=== PATIENT | female | born 1985 | race Caucasian/White ===

== ENCOUNTER 2017-02-11 14:47 | Emergency (ER) | payer BC ==
[~2017-02-11] VITALS: Ht 160 cm; Wt 93.0 kg
[2017-02-11 15:08] VITALS: BP 121/56
[2017-02-11] MEDS ORDERED: IPRATRPIUM/ALBUTEROL 0.5/2.5MG 3 ML NEBU. NEB ONE (15:30)
[2017-02-11] MEDS ORDERED: predniSONE 20 MG TABLET PO ONE (15:30)
--- NOTE | 2017-02-11 15:34 | PHYS DOC ---
Past Medical History Past Medical History: Asthma, Depression Past Surgical History: Cholecystectomy, Tonsillectomy Alcohol Use: None Drug Use: None Adult General Chief Complaint Chief Complaint: COUGH HPI HPI Patient is a 31 year old female who presents with history of asthma who presents with wheezing and a cough for 1 week. Patient is 22 weeks . She states she has not used her breathing treatments because she did not know if she can use them in . Patient denies any fever. Denies any nasal congestion. She states she follows up with her OB for her . Review of Systems Review of Systems Constitutional: Denies fever or chills [] Eyes: Denies change in visual acuity, redness, or eye pain [] HENT: Denies nasal congestion or sore throat [] Respiratory: Reports cough and wheezing, denies shortness of breath [] Cardiovascular: No additional information not addressed in HPI [] GI: . Denies abdominal pain, nausea, vomiting, bloody stools or diarrhea [] : Denies dysuria or hematuria [] Musculoskeletal: Denies back pain or joint pain [] Integument: Denies rash or skin lesions [] Neurologic: Denies headache, focal weakness or sensory changes [] All other systems were reviewed and found to be within normal limits, except as documented in this note. Current Medications Current Medications Current Medications Medications (Trade) Dose Ordered Sig/Torsten Start Time Stop Time Status Last Admin Dose Admin Albuterol/ Ipratropium (Duoneb) 3 ml 1X ONCE 02/11/17 15:30 02/11/17 15:31 DC 02/11/17 15:43 3 ML Prednisone (Prednisone) 60 mg 1X ONCE 02/11/17 15:30 02/11/17 15:31 DC 02/11/17 15:39 60 MG Allergies Allergies Allergies Coded Allergies Type Severity Reaction Last Updated Verified No Known Drug Allergies 02/11/17 No Physical Exam Physical Exam Constitutional: Well developed, well nourished, no acute distress, non-toxic appearance. [] HENT: Normocephalic, atraumatic, bilateral external ears normal, oropharynx moist, no oral exudates, nose normal. [] Eyes: PERRLA, EOMI, conjunctiva normal, no discharge. [] Neck: Normal range of motion, no tenderness, supple, no stridor. [] Cardiovascular:Heart rate regular rhythm, no murmur [] Lungs & Thorax: Patient is actively coughing in the ED. Bilateral breath sounds clear to auscultation [] Abdomen: Bowel sounds normal, soft, no tenderness, no masses, no pulsatile masses. [] Skin: Warm, dry, no erythema, no rash. [] Back: No tenderness, no CVA tenderness. [] Extremities: No tenderness, no cyanosis, no clubbing, ROM intact, no edema. [] Neurologic: Alert and oriented X 3, normal motor function, normal sensory function, no focal deficits noted. [] Psychologic: Affect normal, judgement normal, mood normal. [] Current Patient Data Vital Signs Vital Signs Date Time Temp Pulse Resp B/P (MAP) Pulse Ox O2 Delivery O2 Flow Rate FiO2 02/11/17 15:46 Room Air 02/11/17 15:08 98.0 79 18 97 98.0 EKG EKG [] Radiology/Procedures Radiology/Procedures [] Course & Med Decision Making Course & Med Decision Making Pertinent Labs and Imaging studies reviewed. (See chart for details) Patient is in the ED with cough and wheezing for week. She has history of asthma. She is 22 weeks. heart tones in the 150s. Patient was coughing on arrival to the ED. She was given a DuoNeb treatment and started on prednisone. Her lungs have cleared up, her coughing has reduced. She was discharged with albuterol inhaler and prednisone for 4 more days. Encouraged her to follow-up with her OB as well as PCP in the next 7 days. She states everybody in the family has similar symptoms. Some of it is probably viral. Dragon Disclaimer Dragon Disclaimer This electronic medical record was generated, in whole or in part, using a voice recognition dictation system. Departure Departure Impression: Primary Impression: Asthma exacerbation Additional Impressions: Upper respiratory disease Disposition: 01 HOME, SELF-CARE Condition: STABLE Referrals: ALYSSA LY (PCP) follow up in the next seven days Patient Instructions: Asthma, Adult, [id number], Upper Respiratory Infection , Adult Additional Instructions: You were seen with a cough and wheezing some of the cough could be viral from an upper respiratory infection and some could be part of your asthma. Please take the prescribed medicines as ordered. Follow-up with your [employer] as well as the primary care doctor if you have one in the next 1-2 weeks. Scripts Prednisone (PREDNISONE) 50 Mg Tablet 1 TAB PO DAILY, #4 TAB Prov: ZACH SOLIMAN APRN 02/11/17 Albuterol Sulfate (Proair Respiclick) 90 Mcg Aer.pow.ba 1 PUFF IH PRN Q6HRS Y for SHORTNESS OF BREATH, #1 INHALER 1 Refill Prov: ZACH SOLIMAN APRN 02/11/17 Problem Qualifiers Primary Impression: Asthma exacerbation Asthma severity: mild Asthma persistence: intermittent Qualified Codes: J45.21 - Mild intermittent asthma with (acute) exacerbation Additional Impressions: Weeks of gestation: 22 weeks Qualified Codes: Z3A.22 - 22 weeks gestation of ZACH SOLIMAN APRN Feb 11, 2017 15:34
[2017-02-11] MEDS ORDERED: PRED50TA PO (16:13)
[2017-02-11] MEDS ORDERED: PROAIR RESPICL90 MCG IH (16:13)
== END 2017-02-11 16:18 | disposition home or self-care (01) ==
LOC: ER 14:47
DX: O99.512 Diseases of the respiratory system complicating pregnancy, second trimester (principal); J45.21 Mild intermittent asthma with (acute) exacerbation; J39.9 Disease of upper respiratory tract, unspecified; O99.342 Other mental disorders complicating pregnancy, second trimester; F32.9 Major depressive disorder, single episode, unspecified; Z3A.22 22 weeks gestation of pregnancy
CPT/HCPCS: 94250; 94640; 99283; J7512; J7620

== ENCOUNTER 2020-09-16 15:21 | Emergency (ER) | payer BC, OTHER ==
[~2020-09-16] VITALS: Ht 160 cm; Wt 104.0 kg
[~2020-09-16 15:21] MED LIST: PRED50TA PO; PROAIR RESPICL90 MCG IH
[2020-09-16 18:48] VITALS: BP 124/76
--- NOTE | 2020-09-16 18:57 | RAD ---
EXAMINATION: US DPLX VENOUS EXTREMITY LOWER RT (LOWER EXTREMITY VENOUS ULTRASOUND) CLINICAL HISTORY: Right lower extremity pain w/ hx of prev blood TECHNIQUE: Sonographic grayscale images obtained of the right lower extremity deep venous system with color flow Doppler, compression, and augmentation techniques as indicated. Images obtained and stor ed in a permanent archive. COMPARISON: None FINDINGS: No evidence of absent flow or incompressibility within the common femoral vein, femoral vein, or popl iteal vein. Visualized calf veins appear patent on limited evaluation. IMPRESSION: No evidence of right lower extremity DVT. Electronically signed by: Jim Clarke DO (09/16/2020 6:55 PM) [facility]
--- NOTE | 2020-09-16 19:25 | ED.ADGEN ---
Past Medical History Past Medical History: Asthma, Depression, DVT Additional Past Medical Histor: SEASONAL ALLERGIES Past Surgical History: Cholecystectomy, Tonsillectomy Smoking Status: Former Smoker Alcohol Use: None Drug Use: None General Adult EDM: Chief Complaint: LOWER EXT PAIN HPI: HPI: Patient is a 35 year old female who presents emergency department with complaints of pain in her right calf for the last week. Patient reports a history of DVTs and states she has been very inconsistent with taking her daily baby aspirin. Patient reports that about a week ago she stepped on one of her daughter's toys and rolled her ankle little bit she has had some ankle swelling laterally but denies any ankle pain or decreased range of motion of her ankle. She currently denies any pain. She states that the pain is intermittent and it shoots to her calf. She denies any numbness, tingling, or decreased sensation in the affected extremity. Review of Systems: Review of Systems: Complete ROS is negative unless otherwise noted in HPI. Allergies: Allergies: Allergies Coded Allergies Type Severity Reaction Last Updated Verified cephalexin Allergy Intermediate SWELLING IN FEET 09/16/20 Yes Physical Exam: PE: See Above Constitutional: Well developed, well nourished, no acute distress, non-toxic appearance. [] HENT: Normocephalic, atraumatic, bilateral external ears normal, nose normal. [] Eyes: PERRLA, EOMI, conjunctiva normal, no discharge. [] Neck: Normal range of motion, no stridor. [] Cardiovascular:Heart rate regular rhythm Lungs & Thorax: Respirations even and unlabored, no retractions, no respiratory distress Abdomen: soft, no tenderness Skin: Warm, dry, no erythema, no rash. [] Extremities: Right lower extremity: No obvious deformity, no crepitus, mild calf tenderness to palpation, 2+ pedal pulse, normal no bony tenderness, no cyanosis, ROM intact, no edema. [] Neurologic: Alert and oriented X 3, normal motor, normal sensory, no focal deficits noted. [] Psychologic: Affect normal, judgement normal, mood normal. [] Current Patient Data: Vital Signs: Vital Signs Date Time Temp Pulse Resp B/P (MAP) Pulse Ox O2 Delivery O2 Flow Rate FiO2 09/16/20 18:48 98.7 88 20 124/76 (77) 97 Room Air 98.7 EKG: EKG: [] Heart Score: C/O Chest Pain: No Radiology/Procedures: Radiology/Procedures: PROCEDURE: VENOUS LOWER EXTREMITY RIGHT EXAMINATION: US DPLX VENOUS EXTREMITY LOWER RT (LOWER EXTREMITY VENOUS ULTRASOUND) CLINICAL HISTORY: Right lower extremity pain w/ hx of prev blood TECHNIQUE: Sonographic grayscale images obtained of the right lower extremity deep venous system with color flow Doppler, compression, and augmentation techniques as indicated. Images obtained and stored in a permanent archive. COMPARISON: None FINDINGS: No evidence of absent flow or incompressibility within the common femoral vein, femoral vein, or popliteal vein. Visualized calf veins appear patent on limited evaluation. IMPRESSION: No evidence of right lower extremity DVT. Electronically signed by: Jim Clarke DO (09/16/2020 6:55 PM) [facility] [] Course & Med Decision Making: Course & Med Decision Making Pertinent Labs and Imaging studies reviewed. (See chart for details) [] Dragon Disclaimer: Dragon Disclaimer: This electronic medical record was generated, in whole or in part, using a voice recognition dictation system. Departure Departure Impression: Primary Impression: Pain of right calf Disposition: 01 HOME / SELF CARE / HOMELESS Condition: STABLE Referrals: UNKNOWN PCP NAME (PCP) Patient Instructions: Leg Cramps Additional Instructions: Your ultrasound today was negative for any DVT. Continue taking your baby aspirin as instructed by your primary care doctor. Return to the ER if your symptoms worsen or fever develops, otherwise follow-up with your primary care doctor next week for further evaluation. IVAN WILL APRN Sep 16, 2020 19:25
== END 2020-09-16 20:14 | disposition home or self-care (01) ==
LOC: ER 15:21
DX: M79.661 Pain in right lower leg (principal); G89.11 Acute pain due to trauma; J45.909 Unspecified asthma, uncomplicated; Z87.891 Personal history of nicotine dependence; Z86.718 Personal history of other venous thrombosis and embolism; Z90.49 Acquired absence of other specified parts of digestive tract; Z88.1 Allergy status to other antibiotic agents; W22.09XA Striking against other stationary object, initial encounter; Y93.89 Activity, other specified; Y92.89 Other specified places as the place of occurrence of the external cause; Y99.8 Other external cause status
CPT/HCPCS: 93971; 99284